=== PATIENT | female | born 1950 | race Hispanic/Latino ===

== ENCOUNTER → 2023-10-04 | Emergency (ER) | payer MEDICARE, OTHER ==
[~2023-10-04] MED LIST: DIPHENHYDRAMINE 50 MG/ML VIAL ONE; FLUORESCEIN SODIUM 1 MG/WRAP ONE; KETOROLAC 30 MG/ML INJ ONE; METOCLOPRAMIDE 10 MG/2mL INJ ONE; NA CHLORIDE 0.9% 1,000 ML ONE; TETRACAINE HCL 0.5% 4ML OPTH ONE
[2023-10-04 13:08] LABS: Absolute Basophils 0.1 K/uL (0-0.5); Absolute Eosinophils 0.1 K/uL (0-0.5); Absolute Lymphocytes (CBC) 1.6 K/uL (0.7-4.9); Absolute Monocytes 0.4 K/uL (0.1-1.3); Absolute Neutrophil 4.2 K/uL (1.8-8.0); Basophils % 0.9 % (0-1.3); Eosinophils % 2.2 % (0-4.4); Hematocrit 37.2 % (36.0-45.0); Hemoglobin 12.7 g/dL (12.0-15.0); Lymphocytes % 24.5 % (15.3-44.8); MCH 31.7 pg (27.0-35.0); MCHC 34.2 g/dL (32.0-36.0); MCV 92.7 fL (80-100); Monocytes % 6.8 % (3.3-12.3); Neutrophils % 65.6 % (41.7-73.7); Nucleated Red Blood Cells % 0.1 % (0-0); Platelets 251 thou/uL (152-406); RBC Red Blood Cell Count 4.01 M/uL (3.86-4.86); Red Cell Distribution Width 12.6 % (12.1-15.2)
--- NOTE | 2023-10-04 13:11 | RAD REPORT ---
EXAM DESCRIPTION: CT - Head Brain Wo Cont - 10/04/2023 12:45 pm CLINICAL HISTORY: Headache COMPARISON: none TECHNIQUE: Computed axial tomography of the head was obtained. IV contrast was not requested. All CT scans are performed using dose optimization technique as appropriate and may include automated exposure control or mA/KV adjustment according to patient size. FINDINGS: An intracranial bleed is not seen The ventricles are normal in caliber No significant hypodense areas within the brain visualized No extra-axial fluid collection is noted. Fluid within the sinuses/ mastoids is not seen IMPRESSION: No acute intracranial abnormality is seen If patient's symptoms persist MRI of the brain would be recommended
[2023-10-04 13:24] LABS: Anion Gap 7.1 mEq/L (5.0-15.0); Potassium 4.1 mEq/L (3.5-5.1); Troponin High Sensitivity 19.6 pg/mL (<58.9)
--- NOTE | 2023-10-04 13:39 | RAD REPORT ---
EXAM DESCRIPTION: Eron Single View10/04/2023 1:18 pm CLINICAL HISTORY: Chest pain COMPARISON: none FINDINGS: The lungs appear clear of acute infiltrate. The heart is normal size IMPRESSION: No acute abnormalities displayed
--- NOTE | 2023-10-04 13:57 | EDPHYS ---
Physician Documentation [facility] Name: Pat Singletary Age: 73 yrs Sex: Female : 1950 Arrival Date: 10/04/2023 Time: 12:09 Bed 6 Private MD: ED Physician Paul Renee HPI: 10/03 12:37 This 73 yrs old Female presents to ER via Ambulatory with complaints of Eye ec2 pressure, head pressure, High Blood Pressure. 12:37 Patient arrives today for headache. Intermittent ongoing since yesterday. Patient ec2 reports no head trauma, no head injury. Patient reports head pain is right-sided. Reports no eye trauma. Reports that she also feels like pressure. No history of glaucoma. Patient reports no fevers or chills, no cough or cold symptoms.. Historical: - Allergies: 12:20 Codeine; ld1 - PMHx: 12:20 Hypertensive disorder; ld1 - PSHx: 12:20 None; ld1 - Immunization history:: Adult Immunizations up to date. - Social history:: Smoking status: Patient denies any tobacco usage or history of. Patient/guardian denies using alcohol. ROS: 12:37 Constitutional: as per hpi ec2 Exam: 12:37 Constitutional: GEN: NAD Head: atraumatic Eyes: EOMI Ears: External ears are ec2 normal. CV: regular rate LUNGS: no respiratory distress ABD: non-distended SKIN: no evidence of rashes MSK: no evidence of trauma NEURO: moves all extremities equally, cranial nerves II through XII intact, strength intact all 4 extremities, no pronator drift, normal [id number]. Vital Signs: 12:19 BP 136 / 67; Pulse 60; Resp 18; Temp 98.1; Pulse Ox 100% on R/A; Weight 89.36 kg; ld1 Height 5 ft. 1 in. ; Pain 0/10; 13:13 BP 129 / 59; Pulse 53; Resp 16; Pulse Ox 98% ; bp 13:30 BP 125 / 62; Pulse 55; Resp 18; Pulse Ox 99% on R/A; rs5 12:19 Body Mass Index 37.22 (89.36 kg, 154.94 cm) ld1 12:19 Pain Scale: Adult ld1 Visual Acuity: 13:45 Left Eye Visual acuity 20/20, Pupil size 3 mm, Normal, React To Light; Right Eye Visual rs5 acuity 20/30, Pupil size 3 mm, Normal, React To Light; Both Eyes Visual acuity 20/25; Without Lenses; MDM: 12:28 Patient medically screened. ec2 12:37 Data reviewed: vital signs. ED course: Patient arrives today for evaluation of headache ec2 and right eye pressure. Examination remarkable for neuro intact individual is otherwise in no acute distress. Will obtain lab work, CT imaging, treat the symptoms. Evaluating for intracranial mass, electrolyte disturbances, anemia, renal dysfunction, cardiac pathology.. 13:06 ED course: EKG independently reviewed and interpreted by me, shows normal sinus rhythm, ec2 rate of 53, no acute ST segment elevations, nonconcerning intervals.. 13:45 ED course: Metabolic profile is reassuring, CBC reassuring, troponin within normal ec2 range, chest x-ray shows no acute intrathoracic process, CT scan of the head shows no acute intracranial process. . 10/03 12:36 Order name: Basic Metabolic Panel; Complete Time: 13:44 ec2 10/03 12:36 Order name: CBC with Diff; Complete Time: 13:44 ec2 10/03 12:36 Order name: Troponin HS; Complete Time: 13:44 ec2 10/03 12:36 Order name: XRAY Chest (1 view); Complete Time: 13:44 ec2 10/03 12:36 Order name: CT Head Brain wo Cont; Complete Time: 13:44 ec2 10/03 12:36 Order name: EKG; Complete Time: 12:37 ec2 10/03 12:36 Order name: Cardiac monitoring; Complete Time: 12:57 ec2 10/03 12:36 Order name: EKG - Nurse/Tech; Complete Time: 13:12 ec2 10/03 12:36 Order name: IV Saline Lock; Complete Time: 12:57 ec2 10/03 12:36 Order name: Labs collected and sent; Complete Time: 12:57 ec2 10/03 12:36 Order name: O2 Per Protocol; Complete Time: 12:57 ec2 10/03 12:36 Order name: O2 Sat Monitoring; Complete Time: 12:57 ec2 10/03 12:37 Order name: Eye Tray; Complete Time: 13:12 ec2 10/03 12:37 Order name: Fluoresene Opth strip; Complete Time: 13:12 ec2 10/03 12:37 Order name: Visual Acuity; Complete Time: 13:49 ec2 Administered Medications: 13:12 Drug: NS 0.9% IV 1000 ml IV at 1 bolus Per protocol; 1000 mL bolus Route: IV; Rate: 1 bp bolus; Site: right forearm; 13:35 Follow up: Response: No adverse reaction rs5 13:12 Drug: Ketorolac IVP 15 mg IVP once Route: IVP; Site: right forearm; bp 13:40 Follow up: Response: No adverse reaction; Pain is decreased rs5 13:12 Drug: metoCLOPramide IVP 10 mg IVP once; over 1 to 2 minutes Route: IVP; Site: right bp forearm; 13:45 Follow up: Response: No adverse reaction rs5 13:12 Drug: diphenhydrAMINE IVP 25 mg IVP once Route: IVP; Site: right forearm; bp 13:45 Follow up: Response: No adverse reaction rs5 13:12 Drug: Tetracaine Ophthalmic Drops 0.5 % 1 drops Ophthalmic once Route: Ophthalmic; bp Site: both eyes; 13:45 Follow up: Response: No adverse reaction rs5 Disposition Summary: 10/04/23 13:56 Discharge Ordered Notes: Location: Home ec2 Problem: new ec2 Symptoms: have improved ec2 Condition: Stable ec2 Diagnosis - Headache ec2 - Ocular pain, right eye ec2 Followup: ec2 - With: Private Physician - When: - Reason: Re-evaluation by your physician Discharge Instructions: - Discharge Summary Sheet ec2 - General Headache Without Cause ec2 Forms: - Medication Reconciliation Form ec2 - Thank You Letter ec2 - Antibiotic Education ec2 - Prescription Opioid Use ec2 - Patient Portal Instructions ec2 - Leadership Thank You Letter ec2 Signatures: Dispatcher [employer] Tal Olivera RN RN bp Annette Tucker RN RN ld1 Paul Renee MD MD ec2 Shane Thorne RN rs5 Corrections: (The following items were deleted from the chart) 12:20 12:20 Allergies: No Known Allergies; ld1 ld1
--- NOTE | 2023-10-04 13:57 | ER ---
Nurse's Notes [facility] Name: Pat Singletary Age: 73 yrs Sex: Female : 1950 Arrival Date: 10/04/2023 Time: 12:09 Bed 6 Private MD: Diagnosis: Headache;Ocular pain, right eye Presentation: 10/03 12:19 Chief complaint: Patient states: R eye pressure and headache/pressure since yesterday ld1 morning. Pt reports pressure to head. Coronavirus screen: At this time, the client does not indicate any symptoms associated with coronavirus-19. Ebola Screen: No symptoms or risks identified at this time. Initial Sepsis Screen: Does the patient meet any 2 criteria? No. Patient's initial sepsis screen is negative. Does the patient have a suspected source of infection? No. Patient's initial sepsis screen is negative. Risk Assessment: Do you want to hurt yourself or someone else? Patient reports no desire to harm self or others. Onset of symptoms was October 04, 2023. 12:19 Method Of Arrival: Ambulatory ld1 12:19 Acuity: KARL 3 ld1 Triage Assessment: 12:20 General: Appears in no apparent distress. comfortable, Behavior is calm, cooperative, ld1 appropriate for age. Pain: Denies pain. EENT: No signs and/or symptoms were reported regarding the EENT system. Neuro: Level of Consciousness is awake, alert, obeys commands, Oriented to person, place, time, situation. Cardiovascular: Capillary refill < 3 seconds Patient's skin is warm and dry. Respiratory: Airway is patent Respiratory effort is even, unlabored. GI: Abdomen is round non-distended. : No signs and/or symptoms were reported regarding the genitourinary system. Derm: No signs and/or symptoms reported regarding the dermatologic system. Musculoskeletal: No signs and/or symptoms reported regarding the musculoskeletal system. Historical: - Allergies: 12:20 Codeine; ld1 - PMHx: 12:20 Hypertensive disorder; ld1 - PSHx: 12:20 None; ld1 - Immunization history:: Adult Immunizations up to date. - Social history:: Smoking status: Patient denies any tobacco usage or history of. Patient/guardian denies using alcohol. Screenin:13 [facility] ED Fall Risk Assessment (Adult) History of falling in the last 3 months, bp including since admission No falls in past 3 months (0 pts). Abuse screen: Denies threats or abuse. Denies injuries from another. Nutritional screening: No deficits noted. Tuberculosis screening: No symptoms or risk factors identified. Assessment: 12:30 General: SEE TRIAGE NOTE. bp 13:13 Reassessment: No changes from previously documented assessment. Patient is alert, bp oriented x 3, equal unlabored respirations, skin warm/dry/pink. 13:45 General: Appears in no apparent distress. uncomfortable, Behavior is calm, cooperative. rs5 13:45 Pain: Complains of pain in right eye and head Pain does not radiate. Pain currently is rs5 3 out of 10 on a pain scale. Quality of pain is described as aching, Is continuous. Neuro: Level of Consciousness is awake, alert, obeys commands, Oriented to person, place, time, situation, [employer] Operator are equal bilaterally Moves all extremities. Facial symmetry appears normal, Pupils are PERRLA, Intact. Cardiovascular: Patient's skin is warm and dry. Rhythm is regular. Respiratory: Airway is patent Respiratory effort is even, unlabored, Respiratory pattern is regular, symmetrical. GI: Abdomen is round non-distended, Abd is soft and non tender X 4 quads. : No signs and/or symptoms were reported regarding the genitourinary system. EENT: No signs and/or symptoms were reported regarding the EENT system. Derm: Skin is intact, Skin is dry, Skin is normal, Skin temperature is warm. Musculoskeletal: Range of motion: intact in all extremities. Vital Signs: 12:19 BP 136 / 67; Pulse 60; Resp 18; Temp 98.1; Pulse Ox 100% on R/A; Weight 89.36 kg; ld1 Height 5 ft. 1 in. ; Pain 0/10; 13:13 BP 129 / 59; Pulse 53; Resp 16; Pulse Ox 98% ; bp 13:30 BP 125 / 62; Pulse 55; Resp 18; Pulse Ox 99% on R/A; rs5 12:19 Body Mass Index 37.22 (89.36 kg, 154.94 cm) ld1 12:19 Pain Scale: Adult ld1 Visual Acuity: 13:45 Left Eye Visual acuity 20/20, Pupil size 3 mm, Normal, React To Light; Right Eye Visual rs5 acuity 20/30, Pupil size 3 mm, Normal, React To Light; Both Eyes Visual acuity 20/25; Without Lenses; ED Course: 12:12 Patient arrived in ED. im 12:14 Paul Renee MD is Attending Physician. ec2 12:20 Triage completed. ld1 12:20 Arm band placed on right wrist. ld1 12:29 Tal Coulter, RN is Primary Nurse. bp 12:46 CT Head Brain wo Cont In Process Unspecified. EDMS 13:12 Basic Metabolic Panel Sent. bp 13:13 Patient has correct armband on for positive identification. bp 13:13 CBC with Diff Sent. bp 13:13 Troponin HS Sent. bp 13:13 Inserted saline lock: 22 gauge in right forearm, using aseptic technique. Blood bp collected. 13:14 EKG done, by ED staff, reviewed by Paul Renee MD. bp 13:20 XRAY Chest (1 view) In Process Unspecified. EDMS 14:09 No provider procedures requiring assistance completed. IV discontinued, intact, rs5 bleeding controlled, No redness/swelling at site. Pressure dressing applied. Administered Medications: 13:12 Drug: NS 0.9% IV 1000 ml IV at 1 bolus Per protocol; 1000 mL bolus Route: IV; Rate: 1 bp bolus; Site: right forearm; 13:35 Follow up: Response: No adverse reaction rs5 13:12 Drug: Ketorolac IVP 15 mg IVP once Route: IVP; Site: right forearm; bp 13:40 Follow up: Response: No adverse reaction; Pain is decreased rs5 13:12 Drug: metoCLOPramide IVP 10 mg IVP once; over 1 to 2 minutes Route: IVP; Site: right bp forearm; 13:45 Follow up: Response: No adverse reaction rs5 13:12 Drug: diphenhydrAMINE IVP 25 mg IVP once Route: IVP; Site: right forearm; bp 13:45 Follow up: Response: No adverse reaction rs5 13:12 Drug: Tetracaine Ophthalmic Drops 0.5 % 1 drops Ophthalmic once Route: Ophthalmic; bp Site: both eyes; 13:45 Follow up: Response: No adverse reaction rs5 Medication: 13:13 VIS not applicable for this client. bp Outcome: 13:56 Discharge ordered by . ec2 14:09 Discharged to home ambulatory, rs5 14:09 Condition: stable 14:09 Discharge instructions given to patient, family, Instructed on discharge instructions, follow up and referral plans. Demonstrated understanding of instructions, follow-up care, 14:10 Patient left the ED. rs5 Signatures: Dispatcher [employer] Tal Olivera, RN RN Annette Calabrese RN RN ld1 Shane Thorne RN RN rs5 Carrol Velarde Edwin, MD MD ec2 Corrections: (The following items were deleted from the chart) 12:20 12:20 Allergies: No Known Allergies; ld1 ld1 14:01 13:49 Reassessment: To bedside for visual acuity test. right eye: 20/30, Left eye: rs5 20/20, both eyes: 20/25. rs5 14:09 13:45 Pain: Complains of pain in right eye and head Pain does not radiate. Pain rs5 currently is 5 out of 10 on a pain scale. Quality of pain is described as aching, Is continuous, rs5
[2023-10-04 14:59] VITALS: BP 125/62; TEMP 98.1; O2SAT 99
--- NOTE | 2023-10-05 14:26 | EKG ---
Test Date: 2023-10-04 Test Time: 12:53:59 Rn Ccu: DANNYL MEASUREMENT RESULTS: Intervals: Rate: 53 IA: 174 QRSD: 80 QT: 460 QTc: 431 Primrose: P: 58 IA: 174 QRS: 57 T: 51 INTERPRETIVE STATEMENTS: Sinus bradycardia Otherwise normal ECG No previous ECG available for comparison Electronically Signed On 10-05-23 14:23:21 CDT by Aroldo Garcia
== END ==
LOC: ER 12:09
DX: R51.9 Headache, unspecified (principal); H57.11 Ocular pain, right eye; I10 Essential (primary) hypertension; Z88.5 Allergy status to narcotic agent
CPT/HCPCS: 85025; 80048; 36415; 84484; 70450; 71045; J2765; J1200; J7030; 93005